=== PATIENT | male | born 1940 | race Two or more races ===

== ENCOUNTER 2022-08-08 16:41 | Inpatient (IN) | payer OTHER ==
[~2022-08-08] VITALS: Ht 175.3 cm; Wt 68.0 kg
--- NOTE | 2022-08-08 16:53 | NUR ---
SE RECIBE PACIENTE EN ABULANCIA ALERTA ACOMPANADO DE HIJO CUAL REFIERE TENER DOLOR PELVICO, SE MIDEN SIGNOS VITALES Y SE UBICA EN LISETTE
--- NOTE | 2022-08-08 17:30 | NUR ---
RN KHAN ORIENTA A PTE SOBRE TRATAMIENTO E INSTRUCCIONES A SEGUIR, EL REFIERE ENTENDER. SE LE COLECTA MUESTRAS, SE CANALIZA, SE ADMINISTRA IV FLUIDS Y SE INSERTA CUMMINGS SEGUYN ORDEN MEDICA UTILIZANDO MEDIDAS ASEPTICAS Y ESTERIL.
[2022-08-10] MEDS ORDERED: TAMSULOSIN HCL0.4 MG (08:51)
[2022-08-10] MEDS ORDERED: TRAZODONE HCL50 MG (08:51)
[2022-08-10] MEDS ORDERED: SIMVASTATIN10 MG (08:51)
[2022-08-10] MEDS ORDERED: VALSARTAN160 MG (08:51)
== END 2022-08-13 19:14 | disposition home or self-care (01) | DRG 690 ==
LOC: ER 16:41 → MEDJ 23:01
PROVIDERS: ADMIT Internal Medicine; ATTEND Internal Medicine
PROC: BW21ZZZ Computerized Tomography (CT Scan) of Abdomen and Pelvis (ICD-10-PCS; principal; 2022-08-09)
DX: N39.0 Urinary tract infection, site not specified (principal); R31.9 Hematuria, unspecified; G30.9 Alzheimer's disease, unspecified; F02.80 Dementia in other diseases classified elsewhere, unspecified severity, without behavioral disturbance, psychotic disturbance, mood disturbance, and anxiety; N41.9 Inflammatory disease of prostate, unspecified; G31.83 Neurocognitive disorder with Lewy bodies; K56.41 Fecal impaction; B96.4 Proteus (mirabilis) (morganii) as the cause of diseases classified elsewhere; R73.9 Hyperglycemia, unspecified; I10 Essential (primary) hypertension

== ENCOUNTER 2023-05-19 23:28 | Inpatient (IN) | payer OTHER ==
[~2023-05-19] VITALS: Ht 175.3 cm; Wt 68.0 kg
[~2023-05-19 23:28] MED LIST: SIMVASTATIN10 MG; TAMSULOSIN HCL0.4 MG; TRAZODONE HCL50 MG; VALSARTAN160 MG
[2023-05-20 01:21] LABS: HEMATOCRIT 32.4 % (39.0-48.0); HEMOGLOBIN 11.3 g/dL (13-16.00); MEAN CELL VOLUME 91.2 fL (80.0-100.00); MEAN CORPUSCULAR HEMOGLOBIN 31.7 pg (27.00-32.0); MEAN CORPUSCULAR HGB CONC 34.8 g/dl (32.0-36.0); PLATELET COUNT 175 K/uL (150-450); RED BLOOD COUNT 3.56 M/uL (4.00-6.00); RED CELL DISTRIBUTION WIDTH 13.6 % (11.5-14.5)
[2023-05-20 01:26] LABS: INR 1.05; PARTIAL THROMBOPLASTIN TIME 24.5 SECONDS (22.0-34.0)
[2023-05-20 01:29] LABS: PH,URINE 7.5 (5.0-8.0); URINE APPEARANCE Turbid; URINE BILIRRUBIN Small (NEGATIVE); URINE BLOOD Moderate; URINE COLOR Orange; URINE GLUCOSE Negative (NEGATIVE); URINE LEUKOCYTE Large; URINE NITRATE Negative
[2023-05-20 01:33] LABS: URINE EPITHELIAL CELLS 17.6 uL (0.0-38.8); URINE WBC 2003.3 uL (0.0-23.2)
[2023-05-20 01:52] LABS: ALBUMIN 2.7 gm/dL (3.4-5.0); BILIRUBIN TOTAL 1.04 mg/dL (0.3-1.2); CALCIUM 8.5 mg/dL (8.5-10.1); CREATININE SERUM 1.33 mg/dL (0.70-1.30); GFR 51.73; GLOBULINA 3.2 G/DL (2.4-3.5); POTASSIUM 4.51 mEq/L (3.5-5.1); TOTAL PROTEIN 5.9 gm/dL (6.4-8.2)
[2023-05-20 01:53] LABS: URINE BACTERIA > 9821.2 uL (0.0-1933); URINE PROTEIN 100 (NEGATIVE); URINE RBC > 10558.9 uL (0.0-20.8)
[2023-05-20 09:57] LABS: ERYTHROCYTE SEDIMENTATION RATE 6 mm/hr
[2023-05-20 10:02] LABS: HEMATOCRIT 32.5 % (39.0-48.0); HEMOGLOBIN 11.3 g/dL (13-16.00); MEAN CELL VOLUME 91.6 fL (80.0-100.00); MEAN CORPUSCULAR HEMOGLOBIN 31.9 pg (27.00-32.0); MEAN CORPUSCULAR HGB CONC 34.9 g/dl (32.0-36.0); RED BLOOD COUNT 3.55 M/uL (4.00-6.00); RED CELL DISTRIBUTION WIDTH 13.7 % (11.5-14.5)
[2023-05-20 10:31] LABS: PLATELET COUNT 156 K/uL (150-450)
[2023-05-20 10:43] LABS: ALBUMIN 2.4 gm/dL (3.4-5.0); BILIRUBIN TOTAL 1.09 mg/dL (0.3-1.2); CALCIUM 8.3 mg/dL (8.5-10.1); CREATININE SERUM 0.86 mg/dL (0.70-1.30); GFR 85.56; GLOBULINA 3.1 G/DL (2.4-3.5); MAGNESIUM 1.9 mg/dL (1.8-2.4); PHOSPHOROUS 2.3 mg/dL (2.5-4.9); POTASSIUM 4.24 mEq/L (3.5-5.1); TOTAL PROTEIN 5.5 gm/dL (6.4-8.2)
[2023-05-20 10:44] LABS: C-REACTIVE PROTEIN 9.24 MG/DL (0.00-0.29)
[2023-05-22 07:52] LABS: HEMATOCRIT 30.9 % (39.0-48.0); HEMOGLOBIN 10.7 g/dL (13-16.00); MEAN CELL VOLUME 91.8 fL (80.0-100.00); MEAN CORPUSCULAR HEMOGLOBIN 31.8 pg (27.00-32.0); MEAN CORPUSCULAR HGB CONC 34.7 g/dl (32.0-36.0); RED BLOOD COUNT 3.36 M/uL (4.00-6.00); RED CELL DISTRIBUTION WIDTH 13.2 % (11.5-14.5)
[2023-05-22 08:02] LABS: ALBUMIN 2.1 gm/dL (3.4-5.0); BILIRUBIN TOTAL 1.32 mg/dL (0.3-1.2); CALCIUM 7.8 mg/dL (8.5-10.1); CREATININE SERUM 0.67 mg/dL (0.70-1.30); GFR 114.13; GLOBULINA 2.5 G/DL (2.4-3.5); MAGNESIUM 1.7 mg/dL (1.8-2.4); PHOSPHOROUS 2.8 mg/dL (2.5-4.9); POTASSIUM 3.92 mEq/L (3.5-5.1); TOTAL PROTEIN 4.6 gm/dL (6.4-8.2)
[2023-05-22 09:12] LABS: PLATELET COUNT 130 K/uL (150-450)
[2023-05-24 07:12] LABS: ALBUMIN 2.1 gm/dL (3.4-5.0); BILIRUBIN TOTAL 1.66 mg/dL (0.3-1.2); CALCIUM 7.9 mg/dL (8.5-10.1); CREATININE SERUM 0.64 mg/dL (0.70-1.30); GFR 120.33; GLOBULINA 2.6 G/DL (2.4-3.5); MAGNESIUM 1.8 mg/dL (1.8-2.4); PHOSPHOROUS 2.3 mg/dL (2.5-4.9); POTASSIUM 3.64 mEq/L (3.5-5.1); TOTAL PROTEIN 4.7 gm/dL (6.4-8.2)
[2023-05-24 07:24] LABS: HEMATOCRIT 31.5 % (39.0-48.0); HEMOGLOBIN 11.1 g/dL (13-16.00); MEAN CELL VOLUME 90.2 fL (80.0-100.00); MEAN CORPUSCULAR HEMOGLOBIN 31.8 pg (27.00-32.0); MEAN CORPUSCULAR HGB CONC 35.2 g/dl (32.0-36.0); RED BLOOD COUNT 3.49 M/uL (4.00-6.00); RED CELL DISTRIBUTION WIDTH 13.4 % (11.5-14.5)
[2023-05-24 07:26] LABS: PLATELET COUNT 124 K/uL (150-450)
[2023-05-25] MEDS ORDERED: PROBIOTIC1 EAC2 PO (12:56)
[2023-05-25] MEDS ORDERED: LOSARTAN POTAS100 MG PO (12:56)
[2023-05-25] MEDS ORDERED: [UNRECOGNIZED DRUG - OTHER] PO (12:56)
[2023-05-25] MEDS ORDERED: DOXAZOSIN MESYLA4 MG PO (12:56)
[2023-05-25] MEDS ORDERED: AMOX-CLAV 875-1 EAC1 PO (12:56)
[2023-05-25] MEDS ORDERED: PROTEINEX-18 LI30 ML PO (12:56)
[2023-05-25] MEDS ORDERED: COLACE100 MG PO (12:56)
[2023-05-25] MEDS ORDERED: FER PO (12:56)
[2023-05-25] MEDS ORDERED: MINERAL OIL PO (12:56)
== END 2023-05-25 14:19 | disposition home health service (06) | DRG 871 ==
LOC: ER 23:28 → ICU-2 05-20 08:46 → ICU 05-21 11:06 → MEDJ 05-22 16:14
PROVIDERS: General Practice; ADMIT Internal Medicine; ATTEND Internal Medicine
PROC: BW21ZZZ Computerized Tomography (CT Scan) of Abdomen and Pelvis (ICD-10-PCS; 2023-05-20)
PROC: 02HV33Z Insertion of Infusion Device into Superior Vena Cava, Percutaneous Approach (ICD-10-PCS; principal; 2023-05-21)
PROC: B24BZZZ Ultrasonography of Heart with Aorta (ICD-10-PCS; 2023-05-21)
DX: A41.59 Other Gram-negative sepsis (principal); R65.21 Severe sepsis with septic shock; N39.0 Urinary tract infection, site not specified; N17.9 Acute kidney failure, unspecified; D64.9 Anemia, unspecified; E86.0 Dehydration; G31.83 Neurocognitive disorder with Lewy bodies; F02.80 Dementia in other diseases classified elsewhere, unspecified severity, without behavioral disturbance, psychotic disturbance, mood disturbance, and anxiety; I10 Essential (primary) hypertension; G47.33 Obstructive sleep apnea (adult) (pediatric); E78.5 Hyperlipidemia, unspecified; K57.30 Diverticulosis of large intestine without perforation or abscess without bleeding; N40.1 Benign prostatic hyperplasia with lower urinary tract symptoms; K80.20 Calculus of gallbladder without cholecystitis without obstruction; Z20.822 Contact with and (suspected) exposure to COVID-19